=== PATIENT | female | born 1985 | race Hispanic/Latino ===

== ENCOUNTER 2024-02-12 18:13 | Inpatient (IN) | payer BC ==
[~2024-02-12] VITALS: Ht 152.4 cm; Wt 110.2 kg
[2024-02-12] MEDS ORDERED: LACTATED RINGERS 1000ML 1,000 ML IV PRN (18:30)
[2024-02-12] MEDS ORDERED: LACTATED RINGERS 500 ML 500 ML IV PRN (18:30)
[2024-02-12] MEDS ORDERED: NALOXONE HCL 0.4 MG/1 ML ML IV PRN (18:30)
[2024-02-12] MEDS ORDERED: EPHEDRINE SULFATE 50 MG/ML AMPULE IVP PRN (18:30)
[2024-02-12 19:15] LABS: APPEARANCE,URINE CLOUDY (CLEAR); BILIRUBIN,URINE NEGATIVE (NEGATIVE); COLOR,URINE LIGHT-YELLOW (YELLOW); GLUCOSE, URINE (UA) NEGATIVE (NEGATIVE); KETONES,URINE 10 mg/dL (NEGATIVE); LEUKOCYTE ESTERASE ,URINE 500 Leu/uL (NEGATIVE); NITRATE,URINE NEGATIVE (NEGATIVE); OCCULT BLOOD,URINE MODERATE (NEGATIVE); PROTEIN,URINE 20 mg/dL (NEGATIVE); UROBILINOGEN,URINE 0.2 mg/dL (0.2-1.0)
[2024-02-12 19:16] LABS: ADD UA MICROSCOPIC YES
[2024-02-12 19:20] LABS: BACTERIA,URINE MOD /HPF (None Seen); MUCUS,URINE RARE LPF (None Seen); SQUAMOUS EPITHELIAL CELL,UR MOD /HPF (0-2); WBC,URINE 26-50 /HPF (0-1)
[2024-02-12 19:46] LABS: HEMATOCRIT 36.4 % (36-48); MEAN CORPUSCULAR HEMOGLOBIN 25.7 pg (27.0-33.0); MEAN CORPUSCULAR HGB CONC 31.6 g/dL (32.0-36.0); MEAN CORPUSCULAR VOLUME 81.3 fL (79-99); RED BLOOD CELL COUNT(AUTO) 4.48 MIL/uL (4.00-5.50); WHITE BLOOD COUNT (AUTO) 7.2 K/uL (4.8-10.8)
[2024-02-12] MEDS: DINOPROSTONE 10 MG VAGINAL SUPP VG ONE (19:55)
[2024-02-12 20:36] LABS: HIV 1&2 ANTIBODY Non-Reactive (Negative)
[2024-02-12 20:38] LABS: HIV-1 p24 Antigen Non-Reactive (Negative)
[2024-02-12] MEDS: AMPICILLIN 2GM+NS 100ML 100 ML IV SCH (21:30)
[2024-02-13] MEDS: AMPICILLIN 1GM+NS 50ML 50 ML IV SCH (01:28)
[2024-02-13] MEDS: PROMETHAZINE HCL 25 MG/ML 1ML AMPULE IM PRN (04:43)
[2024-02-13] MEDS: MEPERIDINE-PF 50 MG/ML SYG IVP PRN (04:43)
[2024-02-13] MEDS ORDERED: FENTANYL CITRATE PF 50 MCG/1 ML 2ML VIAL ONE (07:07)
[2024-02-13] MEDS ORDERED: OXYTOCIN-LR 30 UNITS/500ML 500 ML IV SCH (08:00)
[2024-02-13] MEDS: ROPIVACAINE 0.2% 2MG/ML 100ML VIAL EP SCH (08:09)
[2024-02-13] MEDS: LIDOCAINE 2%-EPI 1:200,000 20 ML VIAL IJ ONE (08:09)
[2024-02-13] MEDS ORDERED: MISOPROSTOL 200 MCG TABLET ONE (09:03)
[2024-02-13] MEDS ORDERED: LIDOCAINE HCL 1% 20 ML VIAL ONE (09:04)
[2024-02-13] MEDS ORDERED: METHYLERGONOVINE MALEATE 0.2 MG/1 ML ML IM SCH (11:22)
[2024-02-13] MEDS: METHYLERGONOVINE MALEATE 0.2 MG/1 ML ML ONE (11:26)
[2024-02-13] MEDS ORDERED: DIPH,PERTUSS(ACELL),TET VAC/PF 0.5 ML VIAL IM PRN (11:30)
[2024-02-13] MEDS ORDERED: MEASLES/MUMPS/RUBELLA VACCINE, LIVE 0.5 ML/VIAL SQ PRN (11:30)
[2024-02-13] MEDS ORDERED: LANOLIN 30GM OINTMENT TP PRN (11:30)
[2024-02-13] MEDS ORDERED: ACETAMINOPHEN 325 MG TAB PO PRN (11:30)
[2024-02-13] MEDS: OXYTOCIN-LR 30 UNITS/500ML 500 ML IV SCH (12:03)
[2024-02-13] MEDS: IBUPROFEN 600 MG TABLET PO PRN (14:16)
[2024-02-13 15:58] VITALS: BP 122/66; PULSE 72
[2024-02-13] MEDS: WITCH HAZEL 1 PAD TP PRN (16:03)
[2024-02-13] MEDS: BENZOCAINE/LANOLIN/ALOE VERA 60 ML AEROSOL TP PRN (16:03)
[2024-02-13 18:53] VITALS: BP 109/64; PULSE 81
[2024-02-13] MEDS: ACETAMINOPHEN WITH CODEINE 1 TAB TAB PO PRN (18:53)
[2024-02-13] MEDS: DOCUSATE SODIUM 100 MG CAP PO SCH (20:33)
[2024-02-13] MEDS ORDERED: PREN-134 PO (20:50)
[2024-02-13 23:10] LABS: RAPID PLASMA REAGIN NONREACTIVE (NONREACTIVE)
[2024-02-13 23:25] VITALS: BP 107/63; PULSE 80; RESP 20
[2024-02-14 03:38] VITALS: BP 95/63; PULSE 77; RESP 18
[2024-02-14 06:39] LABS: HEMATOCRIT 28.8 % (36-48); MEAN CORPUSCULAR HEMOGLOBIN 25.8 pg (27.0-33.0); MEAN CORPUSCULAR HGB CONC 32.3 g/dL (32.0-36.0); RED BLOOD CELL COUNT(AUTO) 3.6 MIL/uL (4.00-5.50); RED CELL DISTRIBUTION WIDTH 14.5 % (11.0-15.5); WHITE BLOOD COUNT (AUTO) 11.7 K/uL (4.8-10.8)
[2024-02-14 07:55] VITALS: BP 124/77; PULSE 68; RESP 20
[2024-02-14] MEDS ORDERED: IBUP-2077 PO (09:46)
[2024-02-14] MEDS ORDERED: DOCU-116 PO (09:46)
[2024-02-14 11:58] VITALS: BP 99/60; PULSE 77; RESP 20
[2024-02-14 16:00] VITALS: BP 101/70; PULSE 68; RESP 20
== END 2024-02-14 18:20 | disposition home or self-care (01) | DRG 807 ==
LOC: LDH 18:22 → WSH 02-13 15:45
PROVIDERS: ADMIT Obstetrics & Gynecology; ATTEND Obstetrics & Gynecology
PROC: 10E0XZZ Delivery of Products of Conception, External Approach (ICD-10-PCS; principal; 2024-02-13)
PROC: 10907ZC Drainage of Amniotic Fluid, Therapeutic from Products of Conception, Via Natural or Artificial Opening (ICD-10-PCS; 2024-02-13)
PROC: 3E0P7VZ Introduction of Hormone into Female Reproductive, Via Natural or Artificial Opening (ICD-10-PCS; 2024-02-13)
PROC: 3E0R3BZ Introduction of Anesthetic Agent into Spinal Canal, Percutaneous Approach (ICD-10-PCS; 2024-02-13)
PROC: 00HU33Z Insertion of Infusion Device into Spinal Canal, Percutaneous Approach (ICD-10-PCS; 2024-02-13)
DX: O24.425 Gestational diabetes mellitus in childbirth, controlled by oral hypoglycemic drugs (principal); Z37.0 Single live birth; O71.82 Other specified trauma to perineum and vulva; O99.214 Obesity complicating childbirth; E66.01 Morbid (severe) obesity due to excess calories; Z3A.38 38 weeks gestation of pregnancy
CPT/HCPCS: 36415; 76805; 81001; 82947; 85027; 86592; 86701; 86850; 86900; 86901; 87077; 87088; 87186; 87340; 87390; A4351; G0378; J0290; J2175; J2210; J2550; J2795; J3010; J3490

== ENCOUNTER 2024-04-02 06:27 | Day surgery (SDC) | payer BC ==
[2024-04-01 11:15] LABS: BASOPHILS # (AUTO) 0.03 K/uL (0.00-0.20); BASOPHILS % (AUTO) 0.4 % (0.0-5.0); EOSINOPHILS # (AUTO) 0.23 K/uL (0.00-0.70); EOSINOPHILS % (AUTO) 3.3 % (0.0-8.0); HEMATOCRIT 37.2 % (36-48); IMMATURE GRANULOCYTE ABSOLUTE 0.05 K/uL (0-1); LYMPHOCYTES # (AUTO) 1.7 K/uL (1.0-4.8); MEAN CORPUSCULAR HEMOGLOBIN 25.4 pg (27.0-33.0); MEAN CORPUSCULAR VOLUME 79.5 fL (79-99); MONOCYTES # (AUTO) 0.5 K/uL (0.1-1.0); MONOCYTES % (AUTO) 7.4 % (3.0-13.0); NEUTROPHILS # (AUTO) 4.4 K/uL (1.8-7.7); NEUTROPHILS % (AUTO) 63.2 % (40.0-77.0); PLATELET COUNT (AUTO) 318 K/uL (130-400); RED BLOOD CELL COUNT(AUTO) 4.68 MIL/uL (4.00-5.50); RED CELL DISTRIBUTION WIDTH 16.4 % (11.0-15.5); WHITE BLOOD COUNT (AUTO) 6.9 K/uL (4.8-10.8)
[2024-04-01 11:33] VITALS: BP 109/65; PULSE 63; RESP 18
[2024-04-02] VITALS (18 sets, daily range): BP systolic 107–132; BP diastolic 56–76; PULSE 53–70; RESP 15–20
[~2024-04-02] VITALS: Ht 152.4 cm; Wt 100.4 kg
[2024-04-02] MEDS: LACTATED RINGERS 1000ML 1,000 ML IV ONE (07:03)
[2024-04-02] MEDS ORDERED: ONDANSETRON 4MG INJ ONE (07:17)
[2024-04-02] MEDS ORDERED: DEXAMETHASONE SOD PHOSPHATE 10MG/ML 1ML VIAL ONE (07:17)
[2024-04-02] MEDS ORDERED: GLYCOPYRROLATE 0.2 MG/ML 5 ML VIAL ONE ×2 (07:17→08:31)
[2024-04-02] MEDS ORDERED: MIDAZOLAM HCL 1 MG/ML 2ML VIAL ONE (07:17)
[2024-04-02] MEDS ORDERED: SUCCINYLCHOLINE CHLORIDE 20 MG/ML 10 ML VIAL ONE (07:17)
[2024-04-02] MEDS ORDERED: NEOSTIGMINE METHYLSULFATE 1MG/ML IV ONE (07:17)
[2024-04-02] MEDS ORDERED: LIDOCAINE PF 100MG/5ML (2%) SYRINGE 5ML ONE (07:17)
[2024-04-02] MEDS ORDERED: PROPOFOL 10 MG/ML 20ML VIAL IV ONE (07:17)
[2024-04-02] MEDS ORDERED: FENTANYL CITRATE PF 50 MCG/1 ML 2ML VIAL ONE ×2 (07:18→08:01)
[2024-04-02] MEDS ORDERED: ROCURONIUM BROMIDE 10MG/1ML 5ML VL ONE (07:18)
[2024-04-02] MEDS: CEFAZOLIN SODIUM 1 GM VIAL ONE (08:00)
[2024-04-02] MEDS: CEFAZOLIN SODIUM 2 GM VIAL ONE (08:00)
[2024-04-02] MEDS: BUPIVACAINE/PF 0.25% 30ML VIAL IJ ONE (08:33)
== END 2024-04-02 11:05 | disposition home or self-care (01) ==
LOC: DAH 06:27
PROVIDERS: ATTEND Obstetrics & Gynecology
DX: Z30.2 Encounter for sterilization (principal); E66.01 Morbid (severe) obesity due to excess calories; Z79.899 Other long term (current) drug therapy; Z79.01 Long term (current) use of anticoagulants; Z68.41 Body mass index [BMI] 40.0-44.9, adult
CPT/HCPCS: 84703; 85025; 86850; 86900; 86901; 36415; 58670; 88302; A6260; A4663; A4215 ×3; A4606; J7120; J3010 ×2; J0690 ×2; J1100; J0330; J0665; J3490 ×3; J2001; J2250; J2704; J2405; J2710; C1769 ×3; A4351; A4649 ×2; A4930; A4223; A4222; A4221; A4600; A4510; G0168